=== PATIENT | female | born 1975 | race Two or more races ===

== ENCOUNTER 2023-10-04 13:21 | Inpatient (IN) | payer OTHER ==
[~2023-10-04] VITALS: Ht 160 cm; Wt 61.2 kg
[2023-10-04 15:21] LABS: HEMATOCRIT 37.8 % (36.0-45.00); HEMOGLOBIN 12.9 g/dL (12.0-15.00); MEAN CELL VOLUME 85.1 fL (80.00-100.00); MEAN CORPUSCULAR HEMOGLOBIN 29.1 pg (27.00-32.0); MEAN CORPUSCULAR HGB CONC 34.2 g/dl (32.0-36.0); PLATELET COUNT 335 K/uL (150-450); RED BLOOD COUNT 4.44 M/uL (4.00-6.00); RED CELL DISTRIBUTION WIDTH 13.2 % (11.5-14.5)
[2023-10-04 15:40] LABS: INR 1.01; PARTIAL THROMBOPLASTIN TIME 22.6 SECONDS (22.0-34.0); PROTHROMBIN TIME 10.6 SECONDS (9.0-11.5)
[2023-10-04 15:43] LABS: CALCIUM 8.9 mg/dL (8.5-10.1); CREATININE SERUM 0.78 mg/dL (0.55-1.02); GFR 79.51; POTASSIUM 3.94 mEq/L (3.5-5.1)
[2023-10-04 15:45] LABS: PH,URINE 5.5 (5.0-8.0); URINE APPEARANCE Clear; URINE BILIRRUBIN Negative (NEGATIVE); URINE BLOOD Small; URINE COLOR Yellow; URINE GLUCOSE Negative (NEGATIVE); URINE LEUKOCYTE Negative; URINE NITRATE Negative; URINE PROTEIN Negative (NEGATIVE); URINE UROBILINOGEN 0.2 E.U./dl
[2023-10-04 15:49] LABS: URINE BACTERIA 196.5 uL (0.0-1933); URINE EPITHELIAL CELLS 9.7 uL (0.0-38.8); URINE RBC 29.1 uL (0.0-20.8); URINE WBC 13.7 uL (0.0-23.2)
== END 2023-10-06 16:06 | disposition home or self-care (01) | DRG 694 ==
LOC: ER 13:21 → MEDI 22:12 → MEDJ 22:12 → SEC-K 22:42 → MEDJ 10-05 01:07
PROVIDERS: General Practice; ADMIT Specialist; ATTEND Specialist
PROC: BW21ZZZ Computerized Tomography (CT Scan) of Abdomen and Pelvis (ICD-10-PCS; principal; 2023-10-04)
PROC: BW21YZZ Computerized Tomography (CT Scan) of Abdomen and Pelvis using Other Contrast (ICD-10-PCS; 2023-10-04)
DX: N13.39 Other hydronephrosis (principal); N20.0 Calculus of kidney

== ENCOUNTER 2023-12-01 12:43 | Outpatient (CLI) | payer OTHER | END 2023-12-01 12:49 | disposition home or self-care (01) | LOC: NUCLEAR 12:43 | PROVIDERS: ATTEND Urology | DX: N13.1 Hydronephrosis with ureteral stricture, not elsewhere classified (principal) ==

== ENCOUNTER 2024-08-15 07:31 | Outpatient (CLI) | payer OTHER | END 2024-08-15 07:34 | disposition home or self-care (01) | LOC: SONOGRAMA 07:31 | PROVIDERS: ATTEND Urology | DX: R31.1 Benign essential microscopic hematuria (principal) ==

== ENCOUNTER 2024-09-21 07:31 | Outpatient (CLI) | payer OTHER | END 2024-09-21 07:44 | disposition home or self-care (01) | LOC: TOM 07:31 | PROVIDERS: ATTEND Urology | DX: R31.0 Gross hematuria (principal) ==

== ENCOUNTER 2025-11-06 07:01 | Outpatient (CLI) | payer OTHER | END 2025-11-06 07:03 | disposition home or self-care (01) | LOC: SONOGRAMA 07:01 | PROVIDERS: ATTEND Urology | DX: R31.1 Benign essential microscopic hematuria (principal) ==